=== PATIENT | male | born 1990 | race Caucasian/White ===

== ENCOUNTER 2016-09-07 21:30 | Emergency (ER) | payer MEDICARE, OTHER ==
[~2016-09-07] VITALS: Ht 172.7 cm; Wt 90.7 kg
[2016-09-07] MEDS ORDERED: NORCO 10-325 T1 EACH PO (21:49)
[2016-09-07] MEDS ORDERED: ADVATE3000 UNIT IV (21:59)
== END 2016-09-07 22:52 | disposition home or self-care (01) ==
LOC: ED 21:30
DX: R10.84 Generalized abdominal pain (principal)
CPT/HCPCS: 80053; 83690; 85025; 99283